=== PATIENT | female | born 1955 | race Caucasian/White ===

== ENCOUNTER 2016-08-21 08:07 | Inpatient (IN) | payer BC ==
[~2016-08-21] VITALS: Ht 157.5 cm; Wt 78.2 kg
[~2016-08-21 08:07] MED LIST: ALLEGRA-D 121 TABLET PO; AMBIEN10 MG PO; DIMENHYDRINATE50 MG PO; MAXZIDE 37.5 M1 EACH PO; MOTRIN800 MG PO; PEPCID20 MG PO; TYLENOL EXTRA500 MG PO
[2016-09-27] MEDS ORDERED: ULTRAM50 MG PO (15:12)
[2016-09-27] MEDS ORDERED: POTASSIUM CHLO10 ME3 PO (15:15)
[2016-10-01 12:46] VITALS: BP 141/72
[2016-10-01] MEDS ORDERED: FERROUS SULFAT325 MG PO (12:55)
[2016-10-01] MEDS ORDERED: LAB DRAW (16:26)
[2016-10-01] MEDS ORDERED: DILAUDID2 MG PO (16:26)
[2016-10-01] MEDS ORDERED: TRANSDERM-SCO1 PATCH TD (16:26)
[2016-10-01] MEDS ORDERED: COUMADIN2.5 MG PO (16:26)
[2016-10-01 18:25] VITALS: BP 123/60
[2016-10-01 19:18] LABS: PROTHROMBIN TIME 10.2 (9.2-11.2)
[2016-10-01 19:42] VITALS: BP 119/55
[2016-10-01 23:46] VITALS: BP 93/50
[2016-10-02 04:31] VITALS: BP 96/52
[2016-10-02 06:28] LABS: PROTHROMBIN TIME 10.4 (9.2-11.2)
[2016-10-02 06:40] LABS: ANION GAP 5 MEQ/L (2-14); CHLORIDE 102 MEQ/L (99-109); GFR ESTIMATE (CALCULATED) > 59 mL/min/; GLUCOSE 101 mg/dL (70-99); POTASSIUM 3.6 MEQ/L (3.7-5.4); SAMPLE HEMOLYSIS CHECK 0; SAMPLE ICTERIC CHECK 0; SAMPLE LIPEMIA CHECK 0; SODIUM 138 MEQ/L (136-147); UREA NITROGEN (BUN) 25 mg/dL (9-23)
[2016-10-02 07:01] LABS: MCV 93.8 FL (83-99)
[2016-10-02 08:09] VITALS: BP 114/58
[2016-10-02 11:57] VITALS: BP 129/55
[2016-10-02 16:00] VITALS: BP 133/60
[2016-10-02 23:57] VITALS: BP 149/70
[2016-10-03 06:01] LABS: HEMATOCRIT 32.5 % (36.0-46.0); MCV 92.1 FL (83-99)
[2016-10-03 06:24] LABS: ANION GAP 10 MEQ/L (2-14); CHLORIDE 95 MEQ/L (99-109); GFR ESTIMATE (CALCULATED) > 59 mL/min/; GLUCOSE 128 mg/dL (70-99); POTASSIUM 3.6 MEQ/L (3.7-5.4); SAMPLE HEMOLYSIS CHECK 0; SAMPLE ICTERIC CHECK 0; SAMPLE LIPEMIA CHECK 0; SODIUM 137 MEQ/L (136-147); UREA NITROGEN (BUN) 11 mg/dL (9-23)
[2016-10-03 06:36] LABS: INTER. NORMALIZED RATIO 1.3; PROTHROMBIN TIME 13.3 (9.2-11.2)
[2016-10-03 07:59] VITALS: BP 133/60
== END 2016-10-03 16:05 | disposition home or self-care (01) | DRG 470 ==
LOC: 2SOUTH 08:07 → 3EAST 10-01 11:58 → 2SOUTH 10-01 12:11 → 3EAST 10-01 18:07
PROVIDERS: Orthopaedic Surgery; Physician Assistant Surgical
PROC: 0SRC0J9 Replacement of Right Knee Joint with Synthetic Substitute, Cemented, Open Approach (ICD-10-PCS; principal; 2016-10-01)
DX: M17.11 Unilateral primary osteoarthritis, right knee (principal); I10 Essential (primary) hypertension; E78.00 Pure hypercholesterolemia, unspecified; K21.9 Gastro-esophageal reflux disease without esophagitis; M54.32 Sciatica, left side; Z87.891 Personal history of nicotine dependence; Z88.5 Allergy status to narcotic agent
CPT/HCPCS: 80048; 85014; 85018; 85610; C1713; J0690; J1885; J2250; J2550; J7050; J7120; L1820